=== PATIENT | male | born 1985 | race Caucasian/White ===

== ENCOUNTER → 2016-06-19 | Outpatient (CLI) | payer SELFPAY ==
[~2016-06-19] MED LIST: NO HOME MEDICATIONS
[2016-06-19 11:18] LABS: HEMOGLOBIN 16.6 g/dl (13.5-18.0)
[2016-06-19 11:27] LABS: HEMATOCRIT 46.4 % (42.0-52.0)
== END ==
LOC: COL.LAB 10:47
DX: E83.118 Other hemochromatosis (principal)

== ENCOUNTER → 2016-06-25 | Outpatient (CLI) | payer SELFPAY ==
[2016-06-25 11:18] LABS: HEMOGLOBIN 14.5 g/dl (13.5-18.0)
== END ==
LOC: COL.LAB 10:33
PROVIDERS: Internal Medicine
DX: E83.118 Other hemochromatosis (principal)

== ENCOUNTER → 2019-09-30 | Outpatient (CLI) | payer SELFPAY ==
[2019-09-30 15:20] LABS: BASO # 0.1 (0.0-0.2); EOS # 0.1 (0.0-0.7); EOS % 1.7 % (0-4.0); GRAN # 2.9 (1.4-6.5); GRAN % 59.4 % (42.2-75.2); HEMATOCRIT 42.5 % (42.0-52.0); LYMPH # 1.4 (1.2-3.4); LYMPH % 28.5 % (20.0-51.0); MEAN CELL VOLUME 84 fl (80.0-100.0); MEAN CORPUSCULAR HEMOGLOBIN 30 pg (27.0-31.0); MEAN CORPUSCULAR HGB CONC 35 g/dl (33.0-37.0); MEAN PLATELET VOLUME 10.3 fl (7.4-10.4); MONO # 0.5 (0.1-0.6); MONO % 9.4 % (1.7-9.3); PLATELET COUNT 224 K/mm3 (130-400); RED BLOOD COUNT 5.08 M/mm3 (4.20-5.60); REDCELL DISTRIBUTION WIDTH-CV 12.3 % (11.5-14.5)
[2019-09-30 15:38] LABS: ALBUMIN 4.3 gm/dL (3.5-5.0); BILIRUBIN,TOTAL 0.7 mg/dL (0.0-1.0); CALCIUM 8.9 mg/dL (8.4-10.2); CREATININE, serum 0.8 (0.66-1.25); POTASSIUM 3.9 mmol/L (3.4-5.0); TOTAL PROTEIN 7.1 gm/dL (6.4-8.2)
[2019-09-30 15:42] LABS: IRON,SERUM 148 ug/dL (35-150)
[2019-09-30 15:52] LABS: TOTAL IRON BINDING CAPACITY 238 ug/dL (261-462)
== END ==
LOC: COL.LAB 14:48
DX: E83.110 Hereditary hemochromatosis (principal)